=== PATIENT | male | born 1955 | race African-American/Black ===

== ENCOUNTER 2016-03-20 16:34 | Emergency (ER) | payer OTHER ==
[~2016-03-20] VITALS: Ht 162.6 cm; Wt 68.9 kg
[~2016-03-20 16:34] MED LIST: ALBUTEROL SULF8.5 GM INH; AMOXICILLIN500 MG ORAL; ASPIRIN EC81 MG ORAL; AZITHROMYCIN250 MG PO; CORTISPORIN-TC10 M1 OT; DEBROX15 M1 OT; IBUPROFEN600 MG ORAL; IBUPROFEN800 MG ORAL; NKM; OMNIPRED10 ML OP
[2016-03-20] MEDS ORDERED: Azithromycin 250mg tab PO ONE (17:00)
--- NOTE | 2016-03-20 17:31 | Emergency Room Report ---
History of Present Illness General Chief Complaint: Pain Source: Patient Present Illness HPI Patient states that he has had a cold for the past couple weeks. He states that this had been improving. However, for the past couple days he has noticed right-sided chest pain. He states that this is primarily when he coughs or takes in a deep breath. He does have intermittent cough with some sputum production. He denies fevers or chills. He denies nausea or vomiting. He denies shortness of breath. He denies abdominal pain. He has no other complaints. Allergies: Coded Allergies: No Known Allergies (Unverified , 08/20/12) Patient History Past Medical History: none, see triage record Past Surgical History: none Social History: Reports: alcohol use, smoking Reviewed Nursing Documentation: PMH: Agreed, PSxH: Agreed Nursing Documentation-PMH Past Medical History: No Stated History Review of Systems All Other Systems: negative except mentioned in HPI Physical Exam Vital Signs Date Time Temp Pulse Resp B/P Pulse Ox O2 Delivery O2 Flow Rate FiO2 03/20/16 16:39 100.4 93 14 114/67 96 Room Air Sp02 EP Interpretation: reviewed, normal General Appearance: no apparent distress, alert, GCS 15, non-toxic Head: normocephalic, atraumatic Eyes: bilateral eye PERRL, bilateral eye normal inspection ENT: hearing grossly normal, normal pharynx, no angioedema, normal voice Neck: full range of motion, supple/symm/no masses Respiratory: chest non-tender, lungs clear, normal breath sounds, speaking full sentences Cardiovascular #1: regular rate, rhythm, no edema Gastrointestinal: normal bowel sounds, non tender, soft, non-distended, no guarding, no rebound Rectal: deferred Musculoskeletal: back normal, gait/station normal, normal range of motion, non- tender Neurologic: alert, oriented x3, responsive, motor strength/tone normal, sensory intact, speech normal Psychiatric: judgement/insight normal, memory normal, mood/affect normal, no suicidal/homicidal ideation Skin: normal color, no rash, warm/dry, well hydrated Medical Decision Making Diagnostic Impression: Primary Impression: Pneumonia ER Course This patient has a right-sided pneumonia. This explains the patient's symptoms. I have low suspicion for acute coronary syndrome, PE or aortic dissection based on the patient's history and physical an obvious alternative diagnosis. Patient did undergo basic laboratory workup to include CBC, CMP, cardiac enzymes and this showed no significant abnormalities. Patient is well appearing overall. He is nontoxic with normal oxygen saturations and without any evidence of respiratory distress. At this time, the patient doesn't require admission. I will start the patient on a course of oral antibiotics. The patient's given close return precautions and follow up instructions. Labs Test 03/20/16 17:35 03/20/16 18:17 White Blood Count 10.7 K/UL (4.8-10.8) Red Blood Count 4.38 M/UL (4.70-6.10) Hemoglobin 14.3 G/DL (14.2-18.0) Hematocrit 44.4 % (42.0-52.0) Mean Corpuscular Volume 101 FL (80-99) Mean Corpuscular Hemoglobin 32.7 PG (27.0-31.0) Mean Corpuscular Hemoglobin Concent 32.3 G/DL (32.0-36.0) Red Cell Distribution Width 12.5 % (11.6-14.8) Platelet Count 169 K/UL (150-450) Mean Platelet Volume 9.1 FL (6.5-10.1) Neutrophils (%) (Auto) 81.5 % (45.0-75.0) Lymphocytes (%) (Auto) 9.8 % (20.0-45.0) Monocytes (%) (Auto) 7.3 % (1.0-10.0) Eosinophils (%) (Auto) 0.5 % (0.0-3.0) Basophils (%) (Auto) 1.0 % (0.0-2.0) Sodium Level 141 mEQ/L (135-145) Potassium Level 4.1 mEQ/L (3.4-4.9) Chloride Level 100 mEQ/L (98-107) Carbon Dioxide Level 26 mEQ/L (20-30) Anion Gap 15 (5-15) Blood Urea Nitrogen 11 mg/dL (7-23) Creatinine 1.0 mg/dL (0.7-1.2) Estimat Glomerular Filtration Rate > 60 mL/min (>60) Glucose Level 88 mg/dL (74-106) Lactic Acid Level 0.80 mmol/L (0.66-2.22) Calcium Level 9.2 mg/dL (8.6-10.2) Total Bilirubin 0.4 mg/dL (0.0-1.2) Aspartate Amino Transf (AST/SGOT) 15 U/L (5-40) Alanine Aminotransferase (ALT/SGPT) 13 U/L (3-41) Alkaline Phosphatase 71 U/L (40-129) Total Protein 7.7 g/dL (6.6-8.7) Albumin 4.0 g/dL (3.5-5.2) Globulin 3.7 g/dL Albumin/Globulin Ratio 1.0 (1.0-2.7) Urine Color Pale yellow Urine Appearance Clear Urine pH 7 (4.5-8.0) Urine Specific Brick 1.005 (1.005-1.035) Urine Protein Negative (NEGATIVE) Urine Glucose (UA) Negative (NEGATIVE) Urine Ketones Negative (NEGATIVE) Urine Occult Blood 2+ (NEGATIVE) Urine Nitrite Negative (NEGATIVE) Urine Bilirubin Negative (NEGATIVE) Urine Urobilinogen Normal MG/DL (0.0-1.0) Urine Leukocyte Esterase Negative (NEGATIVE) EKG Diagnostic Results Rate: normal Rhythm: NSR ST Segments: no acute changes Rhythm Strip Diag. Results EP Interpretation: yes Rate: 90's Rhythm: NSR, no PVC's, no ectopy Chest X-Ray Diagnostic Results EP Interpretation: Yes Findings: no effusion, no pneumothorax, other Number of Views: 1 Other Impression RLL opacity Last Vital Signs Date Time Temp Pulse Resp B/P Pulse Ox O2 Delivery O2 Flow Rate FiO2 03/20/16 16:39 100.4 93 14 114/67 96 Room Air Status: improved Disposition: HOME, SELF-CARE Condition: Improved Referrals: [facility],REFERRING (PCP) HEMANT CRISOSTOMO D.O. Mar 20, 2016 17:31
[2016-03-20 17:39] VITALS: BP 130/68
[2016-03-20] MEDS ORDERED: Acetaminophen 500mg (ES) tab ORAL ONE (17:45)
[2016-03-20 17:51] LABS: EOSINOPHILS % (AUTO) 0.5 % (0.0-3.0); LYMPHOCYTES % (AUTO) 9.8 % (20.0-45.0); MEAN CORPUSCULAR HEMOGLOBIN 32.7 PG (27.0-31.0); MEAN CORPUSCULAR HGB CONC 32.3 G/DL (32.0-36.0); MEAN CORPUSCULAR VOLUME 101 FL (80-99); MEAN PLATELET VOLUME 9.1 FL (6.5-10.1); MONOCYTES % (AUTO) 7.3 % (1.0-10.0); NEUTROPHILS % (AUTO) 81.5 % (45.0-75.0); PLATELET COUNT 169 K/UL (150-450); RED BLOOD COUNT 4.38 M/UL (4.70-6.10); RED CELL DISTRIBUTION WIDTH 12.5 % (11.6-14.8); WHITE BLOOD COUNT 10.7 K/UL (4.8-10.8)
[2016-03-20 18:11] LABS: ALANINE AMINOTRANSFERASE 13 U/L (3-41); ANION GAP 15 (5-15); ASPARTATE AMINO TRANSFERASE 15 U/L (5-40); CALCIUM 9.2 mg/dL (8.6-10.2); CARBON DIOXIDE 26 mEQ/L (20-30); CHLORIDE 100 mEQ/L (98-107); GLOMERULAR FILTRATION RATE > 60 mL/min (>60); HEMOLYSIS 6; POTASSIUM 4.1 mEQ/L (3.4-4.9); SODIUM 141 mEQ/L (135-145); TOTAL PROTEIN 7.7 g/dL (6.6-8.7)
[2016-03-20 18:41] LABS: APPEARANCE,URINE CLEAR; KETONES,URINE NEGATIVE (NEGATIVE); LEUKOCYTE ESTERASE ,URINE NEGATIVE (NEGATIVE); NITRITE,URINE NEGATIVE (NEGATIVE); PH,URINE 7 (4.5-8.0); PROTEIN,URINE NEGATIVE (NEGATIVE); UROBILINOGEN,URINE NORMAL MG/DL (0.0-1.0)
[2016-03-20] MEDS ORDERED: IBUPROFEN600 MG ORAL (18:53)
[2016-03-20] MEDS ORDERED: AZITHROMYCIN250 MG ORAL (18:53)
[2016-03-20] MEDS ORDERED: ACETAMINOPHEN-1 EAC1 ORAL (18:53)
[2016-03-20 19:02] LABS: WBC,URINE 0-2 /HPF (0 - 0)
[2016-03-20 19:05] VITALS: BP 125/62
[2016-03-20 19:06] VITALS: BP 130/68
--- NOTE | 2016-03-22 21:16 | Cardiology Report ---
APPROVED REPORT EKG Measurement Heart [id number] Normal sinus rhythm Septal infarct, age undetermined Abnormal ECG
--- NOTE | 2016-03-23 11:03 | Diagnostic Imaging Report ---
Indication: Chest pain Technique: XRAY CHEST 1 V Comparison: 04/16/14 Findings: Cardiac silhouette is mildly prominent. Mild perihilar interstitial prominence is noted. There is left basilar atelectasis. Osseous structures are stable. Impression: Mild perihilar interstitial prominence. Mild edema not excluded and clinical correlation/followup recommended. Mild basilar atelectasis.
== END 2016-03-20 19:08 | disposition home or self-care (01) ==
LOC: EMR 17:02
DX: J18.9 Pneumonia, unspecified organism (principal); F17.200 Nicotine dependence, unspecified, uncomplicated
CPT/HCPCS: 36415; 71010; 80053; 81003; 83605; 85025; 86710; 87040; 93005; 99284; Q0144

== ENCOUNTER 2016-06-04 17:42 | Emergency (ER) | payer OTHER ==
[~2016-06-04] VITALS: Ht 165.1 cm; Wt 68.0 kg
[~2016-06-04 17:42] MED LIST changes: +ACETAMINOPHEN-1 EAC1 ORAL; +AZITHROMYCIN250 MG ORAL
[2016-06-04 18:10] VITALS: BP 118/73
[2016-06-04] MEDS ORDERED: IBUPROFEN600 MG ORAL (18:21)
[2016-06-04] MEDS ORDERED: HYDROCORTISONE28 G2 TP (18:21)
[2016-06-04] MEDS ORDERED: ELBOW STRAP1 EACH MC (18:21)
[2016-06-04 18:25] VITALS: BP 118/73
--- NOTE | 2016-06-04 21:46 | Emergency Room Report ---
History of Present Illness General Chief Complaint: Pain Source: Patient Present Illness HPI The patient is a 60-year-old male presenting for elbow pain which began 4 days prior for no known reason. He denies any known injury. It is described as a 5/ 10 dull ache and is worse with elbow movement and touch. The pain does not radiate from the elbow. He has not tried any medications. Patient also noticed a rash on the back which began after staying in a hotel one week prior. he denies any pain but doesn't make to itching. He denies any other symptoms including N, V, F, chills, SOB, CP, numbness/ tingling Allergies: Coded Allergies: No Known Allergies (Unverified , 08/20/12) Patient History Past Medical History: see triage record Pertinent Family History: none Reviewed Nursing Documentation: PMH: Agreed, PSxH: Agreed Nursing Documentation-PMH Past Medical History: No Stated History Review of Systems All Other Systems: negative except mentioned in HPI Physical Exam Vital Signs Date Time Temp Pulse Resp B/P Pulse Ox O2 Delivery O2 Flow Rate FiO2 06/04/16 17:56 98.1 90 20 118/73 98 Sp02 EP Interpretation: reviewed, normal General Appearance: no apparent distress, alert, GCS 15, non-toxic Head: normocephalic, atraumatic Eyes: bilateral eye PERRL, bilateral eye normal inspection ENT: hearing grossly normal, normal pharynx, no angioedema, normal voice Musculoskeletal: normal range of motion, tender - TTP over the L arm lateral epicondyle Neurologic: alert, oriented x3, responsive, motor strength/tone normal, sensory intact, normal gait, speech normal Psychiatric: judgement/insight normal, memory normal, mood/affect normal, no suicidal/homicidal ideation Skin: normal color, warm/dry, well hydrated, other - papules with excoriations markins on the R lower back Lymphatic: no adenopathy Medical Decision Making PA Attestation Dr. Baker is my supervising physician. Patient management was discussed with my supervising physician Diagnostic Impression: Primary Impression: Left tennis elbow Additional Impression: Bed bug bite Qualified Codes: W57.XXXA - Bitten or stung by nonvenomous insect and other nonvenomous arthropods, initial encounter ER Course The patient is a 60-year-old male presenting for elbow pain and rash Ddx considered include but not limited to sprain/strain, fracture, tendonitis, contusion, bed bug bites, cellulitis, contact dermatitis Physical exam: No apparent distress Left elbow: There is tenderness to palpation over the lateral epicondyle. No edema. No erythema. Full active range of motion. No pain over olecranon. There is a scattered papular rash of the right lower back with excoriations. No burrowing. No scaling. No vesicles. The patient is discharged home and will follow up with PMD. He is given prescriptions for Motrin, topical steroids, and a forearm brace. RICE instructions given Last Vital Signs Date Time Temp Pulse Resp B/P Pulse Ox O2 Delivery O2 Flow Rate FiO2 06/04/16 18:25 98.1 20 118/73 98 06/04/16 17:56 90 Status: improved Disposition: HOME, SELF-CARE Condition: Improved Scripts Arm Brace (ELBOW STRAP) 1 Each Each 1 EACH , #1 Prov: CINTHIA FLOOD 06/04/16 Hydrocortisone Acetate 1% Onit (HYDROCORTISONE 1% OINT) Y Oint 1 GM TP TID, #28 GM Prov: CINTHIA FLOOD 06/04/16 Ibuprofen* (MOTRIN*) 600 Mg Tablet 600 MG ORAL Q8H Y for For Pain, #30 TAB 0 Refills Prov: CINTHIA FLOOD. 06/04/16 Patient Instructions: Tendinitis, Insect Bite Additional Instructions: I discussed my findings with the patient. All questions and concerns have been answered. Treatment and medication compliance have been addressed. I advised the patient that they need to follow up with PMD in 3-5 days. Return to ED if symptoms worsen, new symptoms arise, or if needed for any reason. Patient verbalized understanding of discharge instructions. CINTHIA FLOOD Jun 04, 2016 21:46
== END 2016-06-04 18:25 | disposition home or self-care (01) ==
LOC: EMR 18:03
DX: M77.12 Lateral epicondylitis, left elbow (principal); S30.860A Insect bite (nonvenomous) of lower back and pelvis, initial encounter; W57.XXXA Bitten or stung by nonvenomous insect and other nonvenomous arthropods, initial encounter; Y92.89 Other specified places as the place of occurrence of the external cause; R21 Rash and other nonspecific skin eruption
CPT/HCPCS: 99284

== ENCOUNTER 2016-09-17 18:49 | Emergency (ER) | payer OTHER ==
[~2016-09-17] VITALS: Ht 165.1 cm; Wt 68.0 kg
[~2016-09-17 18:49] MED LIST changes: +ELBOW STRAP1 EACH MC; +HYDROCORTISONE28 G2 TP
[2016-09-17] MEDS ORDERED: ERYTHROMYCIN3.5 GM LEFT EYE (19:11)
[2016-09-17 19:15] VITALS: BP 119/77
[2016-09-17 19:30] VITALS: BP 119/77
--- NOTE | 2016-09-17 20:56 | Emergency Room Report ---
History of Present Illness General Chief Complaint: Eye Problems Source: Patient Present Illness [facility] The patient is a [id number] male presenting with left upper eyelid swelling. He states that he noticed redness and swelling to the eyelid 2 days prior. He denies any pain to the area. 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 He denies fever or chills. He denies any discharge from the eye. Allergies: Coded Allergies: No Known Allergies (Unverified , 08/20/12) Patient History Past Medical History: see triage record Pertinent Family History: none Reviewed Nursing Documentation: PMH: Agreed, PSxH: Agreed Nursing Documentation-PMH Past Medical History: No Stated History Review of Systems All Other Systems: negative except mentioned in HPI Physical Exam Vital Signs Date Time Temp Pulse Resp B/P Pulse Ox O2 Delivery O2 Flow Rate FiO2 09/17/16 18:58 98.1 69 16 128/77 98 Room Air Sp02 EP Interpretation: reviewed, normal General Appearance: no apparent distress, alert, GCS 15, non-toxic Head: normocephalic, atraumatic Eyes: left eye PERRL - non-reactive. Blind, left eye lid inflammation - upper eyelid, bilateral eye EOMI ENT: hearing grossly normal, normal pharynx, no angioedema, normal voice Neurologic: alert, oriented x3, responsive, motor strength/tone normal, sensory intact, speech normal Psychiatric: judgement/insight normal, memory normal, mood/affect normal, no suicidal/homicidal ideation Skin: normal color, no rash, warm/dry, well hydrated Lymphatic: no adenopathy Medical Decision Making PA Attestation Dr. Baker is my supervising physician. Patient management was discussed with my supervising physician Diagnostic Impression: Primary Impression: Blepharitis of eyelid of left eye Qualified Codes: H01.004 - Unspecified blepharitis left upper eyelid ER Course The patient is a [id number] male presenting with left upper eyelid swelling Differential diagnoses considered but not limited to allergic conjunctivitis, bacterial conjunctivitis, viral conjunctivitis, blepharitis, hordeolum Physical exam: Left upper eyelid has erythema and edema to the mid eyelid. Non tender. No DC. He will be DC'ed home with prescription for erythromycin and is given instructions for warm compress. ER precautions given. He will followup with ophthalmology as discussed Last Vital Signs Date Time Temp Pulse Resp B/P Pulse Ox O2 Delivery O2 Flow Rate FiO2 09/17/16 19:30 98.1 71 15 119/77 99 Room Air Status: improved Disposition: HOME, SELF-CARE Condition: Improved Scripts Erythromycin Base (ERYTHROMYCIN*) 3.5 Gm Oint...g. 1 APPLIC LEFT EYE BID for 14 Days, #3.5 GM 0 Refills Prov: CINTHIA FLOOD 09/17/16 Patient Instructions: Blepharitis Additional Instructions: I discussed my findings with the patient. All questions and concerns have been answered. Treatment and medication compliance have been addressed. I advised the patient that they need to follow up with PMD in 3-5 days. Return to ED if symptoms worsen, new symptoms arise, or if needed for any reason. Patient verbalized understanding of discharge instructions. CINTHIA FLOOD Sep 17, 2016 20:56
== END 2016-09-17 19:30 | disposition home or self-care (01) ==
LOC: EMR 19:30
DX: H01.004 Unspecified blepharitis left upper eyelid (principal)
CPT/HCPCS: 99283

== ENCOUNTER 2017-05-18 18:13 | Emergency (ER) | payer OTHER ==
[~2017-05-18] VITALS: Ht 160 cm; Wt 70.3 kg
[~2017-05-18 18:13] MED LIST changes: +ERYTHROMYCIN3.5 GM LEFT EYE
[2017-05-18 18:42] VITALS: BP 116/70
--- NOTE | 2017-05-18 18:47 | Emergency Room Report ---
History of Present Illness General Chief Complaint: Upper Respiratory Illness Source: Patient Present Illness HPI 61 yo male patient presents to ER complaining of cough x1 day. Reports cough with sputum during this time. Denies hemoptysis. Reports at home recently diagnosed with bronchitis, experiencing similar symptoms. Patient complains of losing voice during this time. Patient also complains of wrist and hand pain and left foot pain. 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 Denies recent wrist, hand, foot or ankle injury. Denies difficulty with ambulation. Denies chest pain, SOB, weight loss, abdominal pain, nausea, vomiting, diarrhea. Reports hx of smoking for 20+ years, reports smoking one pack a day. Denies hx of cardiovascular disease. Denies hx of gout. Allergies: Coded Allergies: No Known Allergies (Unverified , 08/20/12) Patient History Past Medical History: see triage record Reviewed Nursing Documentation: PMH: Agreed; PSxH: Agreed Nursing Documentation-PMH Past Medical History: No Stated History Review of Systems All Other Systems: negative except mentioned in HPI Physical Exam Vital Signs Date Time Temp Pulse Resp B/P (MAP) Pulse Ox O2 Delivery O2 Flow Rate FiO2 05/18/17 18:24 98.3 89 18 114/65 95 Room Air 98.2 Sp02 EP Interpretation: reviewed, normal General Appearance: well appearing, no apparent distress, alert, GCS 15, non- toxic Head: normocephalic, atraumatic Eyes: bilateral eye normal inspection, bilateral eye PERRL ENT: hearing grossly normal, normal pharynx, no angioedema, normal voice, TMs + canals normal, uvula midline, moist mucus membranes Neck: full range of motion Respiratory: lungs clear, normal breath sounds, no rhonchi, no respiratory distress, no accessory muscle use, no wheezing, speaking full sentences Cardiovascular #1: regular rate, rhythm, no edema Cardiovascular #2: 2+ radial (R), 2+ radial (L) Genitourinary: no CVA tenderness Musculoskeletal: back normal, digits/nails normal, gait/station normal, normal range of motion, non-tender, no calf tenderness, swelling - mild edema on dorsum of right foot, other - NVI, no snuffbox tendernes bilaterally Neurologic: alert, oriented x3, responsive, motor strength/tone normal, sensory intact Psychiatric: mood/affect normal Skin: no rash Lymphatic: no adenopathy Medical Decision Making PA Attestation Dr. Ibanez is my supervising Physician whom patient management has been discussed with. Diagnostic Impression: Primary Impression: Upper respiratory infection Additional Impressions: Foot pain Bilateral wrist pain ER Course Pt presents to ED c/o cough and wrist/forearm/left foot pain. DDX considered but are not limited to influenza, viral URI, pneumonia, strep throat, rhinitis, sinusitis, otitis media, laryngitis. DDX considered but are not limited to sprain, strain, overuse, carpal tunnel, tendonitis. Ordered CXR to rule out underlying disorder due to history of smoking. Patient denies chest pain, hemoptysis, does not require workup for underlying cardiac disorder. Low suspicion for PE per Well's criteria. Denies recent injury or trauma, full ROM, no deformity noted, low suspicion for fracture, does not require imaging at this time. VITAL SIGNS are WNL, patient is afebrile ER COURSE: CXR negative for acute disease per the preliminary reading. Advised patient on RICE: rest, ice, compression, elevation. Informed patient pain likely to overuse, needs rest and Tylenol. Avoid overuse of voice and singing for laryngitis like symptoms. Informed patient cough symptoms likely viral in nature, does not require abx at this time, xray clear, lungs clear to auscultation. Don't smoke. Stop smoking, worsen cough symptoms. Patient reports does not want to quit at this time. Return to ER for new or worsening of symptoms. Patient declined need for crutches, reports able to ambulate without difficulty. DISCHARGE: -Rx given for Ibuprofen -Rx given for Promethazine syrup for cough sx. At this time pt is stable for d/c to home. Patient is resting comfortably, in no acute distress, nontoxic appearing, smiling, talking without difficulty. Patient to take medications as instructed Will provide with patient care instructions and any necessary prescriptions. Care plan and follow-up instructions provided. Patient instructed to follow-up with primary care provider in 3 - 5 days. Patient questions asked and answered. Patient reports understanding and agreement to treatment plan. ER precautions given. Patient instructed to return to ER immediately for any new or worsening of symptoms including but not limited to increasing SOB, persistent fever. Chest X-Ray Diagnostic Results Chest X-Ray Diagnostic Results : Chest X-Ray Ordered: Yes # of Views/Limited/Complete: 1 View Indication: Other - cough EP Interpretation: Yes PA Xray: Interpretation reviewed, by supervising MD, and agrees with findings. Interpretation: no consolidation, no effusion, no pneumothorax, no acute cardiopulmonary disease Impression: No acute disease JOJO Jimenez Text Osmar Laureano PA-C Last Vital Signs Date Time Temp Pulse Resp B/P (MAP) Pulse Ox O2 Delivery O2 Flow Rate FiO2 05/18/17 18:42 89 18 Room Air 05/18/17 18:42 98.2 116/70 95 98.2 Disposition: HOME, SELF-CARE Condition: Stable Scripts Ibuprofen* (MOTRIN*) 600 Mg Tablet 600 MG ORAL Q8H PRN for For Pain, #30 TAB 0 Refills Prov: Bharat Laureano 05/18/17 Promethazine Hcl (PROMETHAZINE HCL*) 6.25 Mg/5 Ml Syrup 5 ML ORAL Q8H, #120 ML 0 Refills Prov: Bharat Laureano 05/18/17 Referrals: [facility],REFERRING (PCP) Patient Instructions: Foot Contusion, [id number], Upper Respiratory Infection , Adult, Wrist Pain, [id number] Additional Instructions: Patient instructed to follow up with primary care provider and discuss further referral to orthopedics. Discuss referral to pain. Patient instructed on RICE method: rest, ice, compression, elevation. Patient instructed to WBAT. Take medications as directed. Patient questions asked and answered. ER precautions given, patient instructed to return to ER immediately for any new or worsening of symptoms. Bharat Laureano May 18, 2017 18:47
[2017-05-18] MEDS ORDERED: PROMETHAZI6.25 MG/1 ORAL (19:13)
[2017-05-18] MEDS ORDERED: IBUPROFEN600 MG ORAL (19:13)
[2017-05-18 19:20] VITALS: BP 116/70
--- NOTE | 2017-05-19 10:59 | Diagnostic Imaging Report ---
Indication: Cough Comparison: 03/20/2016 A single view chest radiograph was obtained. Findings: Cardiomediastinal appearance is within normal limits for age. Pulmonary vascularity is appropriate. The diaphragmatic contour is smooth and costophrenic angles are sharp. No pleural effusions are identified. The bones are unremarkable. Impression: No acute findings
== END 2017-05-18 19:20 | disposition home or self-care (01) ==
LOC: EMR 18:39
DX: J06.9 Acute upper respiratory infection, unspecified (principal); M25.532 Pain in left wrist; M25.531 Pain in right wrist; M25.572 Pain in left ankle and joints of left foot; F17.210 Nicotine dependence, cigarettes, uncomplicated
CPT/HCPCS: 71045; 99284

== ENCOUNTER 2017-12-20 16:13 | Emergency (ER) | payer OTHER ==
[~2017-12-20] VITALS: Ht 162.6 cm; Wt 68.0 kg
[~2017-12-20 16:13] MED LIST changes: +PROMETHAZI6.25 MG/1 ORAL
[2017-12-20] MEDS ORDERED: Lidocaine 1% 10mg/ml/Epi 0.005mg/ml 30ml vial INJ ONE (16:30)
[2017-12-20 16:31] VITALS: BP 121/75
[2017-12-20 17:38] LABS: ANION GAP 11 mmol/L (5-15); BASOPHILS % (AUTO) 2.9 % (0.0-2.0); BLOOD UREA NITROGEN 17 mg/dL (7-18); CALCIUM 9.6 MG/DL (8.5-10.1); CARBON DIOXIDE 27 MMOL/L (21-32); CHLORIDE 101 MMOL/L (98-107); CREATININE 1.1 MG/DL (0.55-1.30); EOSINOPHILS % (AUTO) 2.1 % (0.0-3.0); HEMATOCRIT 46.6 % (42.0-52.0); HEMOGLOBIN 15.6 G/DL (14.2-18.0); LYMPHOCYTES % (AUTO) 14.9 % (20.0-45.0); MEAN CORPUSCULAR VOLUME 97 FL (80-99); MONOCYTES % (AUTO) 9.7 % (1.0-10.0); NEUTROPHILS % (AUTO) 70.4 % (45.0-75.0); PLATELET COUNT 178 K/UL (150-450); POTASSIUM 3.9 MMOL/L (3.5-5.1); RED BLOOD COUNT 4.79 M/UL (4.70-6.10); RED CELL DISTRIBUTION WIDTH 11.7 % (11.6-14.8); SODIUM 139 MMOL/L (136-145); WHITE BLOOD COUNT 6.1 K/UL (4.8-10.8)
[2017-12-20 17:43] LABS: ALANINE AMINOTRANSFERASE 48 U/L (12-78); ALBUMIN 4.1 G/DL (3.4-5.0); ALBUMIN/GLOBULIN RATIO 0.7 (1.0-2.7); ALKALINE PHOSPHATASE 78 U/L (46-116); ASPARTATE AMINO TRANSFERASE 34 U/L (15-37); BILIRUBIN,TOTAL 0.5 MG/DL (0.2-1.0)
[2017-12-20] MEDS ORDERED: Silver Nitrate Stick TOPIC ONE (17:45)
[2017-12-20 18:39] VITALS: BP 118/76
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
[2017-12-20] MEDS ORDERED: CHLOR-TRIMETON4 MG PO (19:14)
[2017-12-20] MEDS ORDERED: BACITRACIN15 GM TOPIC (19:14)
[2017-12-20 20:00] VITALS: BP 115/75
== END 2017-12-20 19:25 | disposition home or self-care (01) ==
LOC: EMR 16:50
DX: R04.0 Epistaxis (principal)
CPT/HCPCS: 36415; 80053; 85025; 85610; 85730; 99283

== ENCOUNTER 2018-01-04 14:57 | Emergency (ER) | payer OTHER ==
[~2018-01-04] VITALS: Ht 162.6 cm; Wt 68.0 kg
[~2018-01-04 14:57] MED LIST changes: +BACITRACIN15 GM TOPIC; +CHLOR-TRIMETON4 MG PO
[2018-01-04 15:20] VITALS: BP 120/78
[2018-01-04] MEDS ORDERED: Hydrogen Peroxide 473ml Bottle TOPIC ONE (15:30)
--- NOTE | 2018-01-04 15:32 | Emergency Room Report ---
History of Present Illness General Chief Complaint: Earache Source: Patient Present Illness HPI 62-year-old male patient presents ER complaining of excessive cerumen in bilateral ears. Reports decreased hearing to symptoms. Denies use Q-tips. Denies ear drainage. Denies fever, chest pain, shortness of breath. 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 Allergies: Coded Allergies: No Known Allergies (Unverified , 12/20/17) Patient History Past Medical History: see triage record Reviewed Nursing Documentation: PMH: Agreed; PSxH: Agreed Nursing Documentation-PMH Past Medical History: No History, Except For Review of Systems All Other Systems: negative except mentioned in HPI Physical Exam Vital Signs Date Time Temp Pulse Resp B/P (MAP) Pulse Ox O2 Delivery O2 Flow Rate FiO2 01/04/18 15:10 98.2 98 17 120/78 97 Room Air Sp02 EP Interpretation: reviewed, normal General Appearance: well appearing, no apparent distress, alert, GCS 15, non- toxic Head: normocephalic, atraumatic Eyes: bilateral eye normal inspection, bilateral eye PERRL ENT: hearing grossly normal, normal pharynx, no angioedema, normal voice, uvula midline, moist mucus membranes, other - cerumen impaction bilaterally, no pain with ear pulling Neck: full range of motion Respiratory: lungs clear, normal breath sounds, no rhonchi, no respiratory distress, no accessory muscle use, no wheezing, speaking full sentences Cardiovascular #1: regular rate, rhythm, no edema Musculoskeletal: back normal, digits/nails normal, gait/station normal, normal range of motion, non-tender Neurologic: alert, oriented x3, responsive, motor strength/tone normal, sensory intact Psychiatric: mood/affect normal Skin: no rash Medical Decision Making PA Attestation Dr. Rey is my supervising Physician whom patient management has been discussed with. Diagnostic Impression: Primary Impression: Cerumen impaction ER Course Pt presents to ED c/o ear pain. DDX considered but are not limited to rhinitis, sinusitis, otitis media, otitis externa, cerumen impaction. VITAL SIGNS are WNL, patient is afebrile. Ordered hydrogen peroxide. ED INTERVENTIONS: PE shows impacted cerumen in ear bilaterally. No mastoid swelling or erythema, no rash or vesicles on face. Patient ear cleaned and flushed with saline and hydrogen peroxide. small amount of bleeding following procedure to lavage ears. Will provide patient with antibiotic eardrops to prevent infection. following lavage, able to visualize TMs, nonerythematous, no TM perforation. Patient instructed not to use Q-tips. Follow-up with primary care provider for further treatment and referral. Discuss referral to ENT. DISCHARGE: Rx provided for Debrox Rx provided for erythromycin At this time pt is stable for d/c to home. patient resting comfortably, no acute distress, nontoxic appearing, talking without difficulty, smiling. Patient to take medications as instructed Will provide with patient care instructions and any necessary prescriptions. Care plan and follow-up instructions provided. Patient instructed to follow-up with primary care in 3 - 5 days. Patient questions asked and answered. patient reports understanding and agreement treatment plan. ER precautions given. Patient instructed to return to ER immediately for any new or worsening of symptoms including but not limited to increasing SOB, persistent fever. - Please note that this Emergency Department Report was dictated using [employer] room technician technology software, occasionally this can lead to erroneous entry secondary to interpretation by the dictation equipment. Last Vital Signs Date Time Temp Pulse Resp B/P (MAP) Pulse Ox O2 Delivery O2 Flow Rate FiO2 01/04/18 15:10 98.2 98 17 120/78 97 Room Air Disposition: HOME, SELF-CARE Condition: Stable Scripts Neomycin/Polymyxin B Sulf/Hc (FOHOTZUC-LABCOYHIK-UB EAR SUSP) 10 Ml Drops.susp 10 ML OT BID, #10 ML Prov: Bharat Laureano 01/04/18 Carbamide Peroxide (DEBROX) 15 Ml Drops 5 DROP BOTH EARS TWICE A DAY for 4 Days, ML 0 Refills Prov: Bharat Laureano 01/04/18 Patient Instructions: Cerumen Impaction Additional Instructions: Followup with primary care provider in 3 -5 days. Discuss referral to ENT specialist. Take medications as directed. Patient questions asked and answered. ER precautions given, patient instructed to return to ER immediately for any new or worsening of symptoms. Bharat Laureano Jan 04, 2018 15:32
[2018-01-04] MEDS ORDERED: DEBROX15 M1 BOTH EARS (16:47)
[2018-01-04] MEDS ORDERED: NEOMYCIN-POLYMY10 M1 OT (16:47)
[2018-01-04 16:59] VITALS: BP 130/78
[2018-01-05] MEDS ORDERED: TYLENOL EXTRA500 MG ORAL (15:55)
== END 2018-01-04 17:00 | disposition home or self-care (01) ==
LOC: EMR 15:43
DX: H61.23 Impacted cerumen, bilateral (principal)
CPT/HCPCS: 69209; 99284; Z7502

== ENCOUNTER 2018-01-05 15:49 | Emergency (ER) | payer OTHER ==
[~2018-01-05] VITALS: Ht 162.6 cm; Wt 68.0 kg
[~2018-01-05 15:49] MED LIST changes: +DEBROX15 M1 BOTH EARS; +NEOMYCIN-POLYMY10 M1 OT
[2018-01-05] MEDS ORDERED: TYLENOL EXTRA500 MG ORAL (15:55)
--- NOTE | 2018-01-05 16:08 | Emergency Room Report ---
History of Present Illness General Chief Complaint: Earache Source: Patient Present Illness HPI 62year-old male patient presents ER complaining of ear pain the past few days. Patient was seen here yesterday by me for similar symptoms. He was discharged home with bilateral cerumen impaction following lavage. heart symptoms right ear have improved however still has decreased hearing in his left ear. Reports filled the antibiotic prescription did not fill the Debrox medication because the pharmacy "didn't have it", states will fill prescription today. denies ear drainage. Denies fever, chest pain, shortness of breath. Denies sore throat. Allergies: Coded Allergies: No Known Allergies (Unverified , 12/20/17) Patient History Past Medical History: see triage record Reviewed Nursing Documentation: PMH: Agreed; PSxH: Agreed Review of Systems All Other Systems: negative except mentioned in HPI Physical Exam Vital Signs Date Time Temp Pulse Resp B/P (MAP) Pulse Ox O2 Delivery O2 Flow Rate FiO2 01/05/18 15:51 98.1 83 20 127/81 97 Room Air Sp02 EP Interpretation: reviewed, normal General Appearance: well appearing, no apparent distress, alert, GCS 15, non- toxic Head: normocephalic, atraumatic Eyes: bilateral eye normal inspection, bilateral eye PERRL ENT: hearing grossly normal, normal pharynx, no angioedema, normal voice, TMs + canals normal - right ear, uvula midline, moist mucus membranes, other - left ear: Excessive cerumen noted in ear canal, no surrounding erythema or edema, no bleeding, no drainage, able to visualize portion of TM, nonerytehmatous, no effusion Neck: full range of motion, no bony tend Respiratory: lungs clear, normal breath sounds, no rhonchi, no respiratory distress, no accessory muscle use, no wheezing, speaking full sentences Cardiovascular #1: regular rate, rhythm, no edema Musculoskeletal: back normal, digits/nails normal, gait/station normal, normal range of motion, non-tender Psychiatric: mood/affect normal Skin: no rash Medical Decision Making PA Attestation Dr. Ceballos is my supervising Physician whom patient management has been discussed with. Diagnostic Impression: Primary Impression: Excessive cerumen in left ear canal ER Course Pt presents to ED c/o ear pain. DDX considered but are not limited to rhinitis, sinusitis, otitis media, otitis externa, cerumen impaction. VITAL SIGNS are WNL, patient is afebrile. Ordered hydrogen peroxide. ED INTERVENTIONS: PE shows impacted cerumen in left ear, able to visualize TM behind however still large amount of cerumen No mastoid swelling or erythema, no rash or vesicles on face. Patient ear cleaned and flushed with saline. large amount of wax removed from ear. Able to visualize TM, nonerythematous no effusion. Mild erythema of the ear canal, likely due to removal of cerumen, advised patient to continue with medications as previously instructed. reports hearing symptoms improved. advised on use of Colace for cerumen removal. Patient instructed not to use Q-tips. Follow-up with primary care provider for further treatment and referral. Discuss referral to ENT. Does not need refills of prescriptions. DISCHARGE: At this time pt is stable for d/c to home. patient resting comfortably, no acute distress, nontoxic appearing, talking without difficulty, smiling. Patient to take medications as instructed Will provide with patient care instructions and any necessary prescriptions. Care plan and follow-up instructions provided. Patient instructed to follow-up with primary care in 3 - 5 days. Patient questions asked and answered. patient reports understanding and agreement treatment plan. ER precautions given. Patient instructed to return to ER immediately for any new or worsening of symptoms including but not limited to increasing SOB, persistent fever. - Please note that this Emergency Department Report was dictated using [employer]feed management advisor technology software, occasionally this can lead to erroneous entry secondary to interpretation by the dictation equipment. Last Vital Signs Date Time Temp Pulse Resp B/P (MAP) Pulse Ox O2 Delivery O2 Flow Rate FiO2 01/05/18 15:51 98.1 83 20 127/81 97 Room Air Disposition: HOME, SELF-CARE Condition: Stable Patient Instructions: Cerumen Impaction Additional Instructions: Followup with primary care provider in 3 -5 days. Followup with ENT. Advised on use of colace pills, poke hole in pill and drip into ear, allow to stay for several minute with head on side before washing out. Take medications as directed. Patient questions asked and answered. ER precautions given, patient instructed to return to ER immediately for any new or worsening of symptoms. Bharat Laureano Jan 05, 2018 16:08
[2018-01-05 16:52] VITALS: BP 131/79
[2018-01-05 16:53] VITALS: BP 127/81
== END 2018-01-05 16:53 | disposition home or self-care (01) ==
LOC: EMR 16:36
DX: H61.22 Impacted cerumen, left ear (principal); Z87.891 Personal history of nicotine dependence
CPT/HCPCS: 99282

== ENCOUNTER 2018-03-03 15:59 | Emergency (ER) | payer OTHER ==
[~2018-03-03] VITALS: Ht 165.1 cm; Wt 70.3 kg
[~2018-03-03 15:59] MED LIST changes: +TYLENOL EXTRA500 MG ORAL
--- NOTE | 2018-03-03 16:05 | NUR ---
ED Nurse Note: patient walked into ED brought in by his brother from home c/o back pain x 2days, denies injury, it does not radiate to anywhere else. a/o x4, ambulatory.
[2018-03-03] MEDS ORDERED: Methocarbamol 500mg tab ORAL ONE (16:30)
[2018-03-03] MEDS ORDERED: Ketorolac 30mg Inj IM ONE (16:30)
[2018-03-03 16:32] VITALS: BP 100/62
[2018-03-03] MEDS ORDERED: TYLENOL EXTRA500 MG ORAL (16:35)
[2018-03-03] MEDS ORDERED: LIDOCAINE700 M1 TP (16:35)
[2018-03-03] MEDS ORDERED: ROBAXIN500 MG PO (16:35)
--- NOTE | 2018-03-03 16:35 | Emergency Room Report ---
History of Present Illness General Chief Complaint: Back Pain-No Injury Source: Patient, Medical Record Present Illness HPI 62-year-old male patient presents the ER complaining of lower back pain for the past 2 days. 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 States he does not, performed a long time". Denies abdominal pain. Denies bowel or bladder incontinence. Denies pain rating down legs. Denies fever, chest pain, shortness of breath. Denies acute injury or trauma. Denies other aggravating or relieving factors. Reports took [id number] NSAIDs for relief of pain symptoms. Denies history of diabetes. Denies history of kidney problems. Denies dysuria, hematuria. Denies diarrhea. Reports history of kidney stones when he was younger however states this does not feel similar to that pain. Denies history of drug use or back surgery. Denies history of kidney disease. Allergies: Coded Allergies: No Known Allergies (Unverified , 12/20/17) Patient History Past Medical History: see triage record Reviewed Nursing Documentation: PMH: Agreed; PSxH: Agreed Nursing Documentation-PMH Past Medical History: No History, Except For Review of Systems All Other Systems: negative except mentioned in HPI Physical Exam Vital Signs Date Time Temp Pulse Resp B/P (MAP) Pulse Ox O2 Delivery O2 Flow Rate FiO2 03/03/18 16:02 98.2 95 18 100/62 95 Room Air Sp02 EP Interpretation: reviewed, normal General Appearance: well appearing, no apparent distress, alert, GCS 15, non- toxic Head: normocephalic, atraumatic Eyes: bilateral eye normal inspection, bilateral eye PERRL ENT: hearing grossly normal, normal pharynx, no angioedema, normal voice, uvula midline, moist mucus membranes Neck: full range of motion Respiratory: lungs clear, normal breath sounds, no rhonchi, no respiratory distress, no accessory muscle use, no wheezing, speaking full sentences Cardiovascular #1: regular rate, rhythm, no edema Gastrointestinal: non tender, soft, no mass, non-distended, no guarding, no pulsatile mass, no rebound Musculoskeletal: back normal, digits/nails normal, gait/station normal, normal range of motion, non-tender Neurologic: alert, oriented x3, responsive, motor strength/tone normal, sensory intact Psychiatric: mood/affect normal Skin: no rash Medical Decision Making PA Attestation Dr. Khan is my supervising Physician whom patient management has been discussed with. Diagnostic Impression: Primary Impression: Lumbago ER Course Pt presents to ED c/o back pain x2 days. DDX considered but are not limited to sprain, strain, cauda equina, epidural abscess, AAA, herniated disc. Low suspicion for cauda equina, no bowel or bladder incontinence or retention. No fever, nontoxic appearing, no radiation of pain, low suspicion for epidural mass. No abdominal pain, no blood pressure elevation, nontoxic appearing, low suspicion for AAA. VITAL SIGNS are WNL, patient is afebrile ER COURSE: Pain medication provided. Lidocaine patch and muscle relaxant provided to patient. Patient does not require imaging at this time, no spinous process tenderness, no bony depression, no recent injury or trauma, low suspicion for fracture. 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 Advised on ice and heat. Advised on rest. Followup with pain management and/or PT. Request referral from PCP. Followup wtih PCP for further MRI and/or CT imaging as needed. DISCHARGE: -Rx provided for Tylenol -Rx provided for Lidocaine patch -Rx provided for Robaxin. SE may cause drowsiness, do not take prior to drinking , driving, or operating [employer] machinery. At this time pt. is stable for d/c to home. At this time patient is resting comfortably, in no acute distress, nontoxic appearing, smiling and talking without difficulty. Will provide printed patient care instructions, and any necessary prescriptions. Patient instructed to follow with primary care provider for further treatment and referral as needed. Care plan and follow up instructions have been discussed with the patient prior to discharge. Patient reports understanding and agreement to treatment plan. Patient questions asked and answered. ER precautions given, patient instructed to return to ER immediately for any new or worsening of symptoms. - Please note that this Emergency Department Report was dictated using [employer] boring machine operator for metal technology software, occasionally this can lead to erroneous entry secondary to interpretation by the dictation equipment. Last Vital Signs Date Time Temp Pulse Resp B/P (MAP) Pulse Ox O2 Delivery O2 Flow Rate FiO2 03/03/18 16:02 98.2 95 18 100/62 95 Room Air Status: improved Disposition: HOME, SELF-CARE Condition: Stable Scripts Acetaminophen* (TYLENOL EXTRA STRENGTH*) 500 Mg Tablet 500 MG ORAL Q8H PRN for Prn Headache/Temp > 101, #30 TAB 0 Refills Prov: Bahrat Laureano 03/03/18 Methocarbamol* (ROBAXIN*) 500 Mg Tablet 500 MG PO TID, #21 TAB 0 Refills Prov: Bharat Laureano 03/03/18 Lidocaine (Lidocaine) 1 Each Adh..patch 5 % TP DAILY for 7 Days, #7 PATCH Prov: Bharat Laureano 03/03/18 Referrals: NON PHYSICIAN (PCP) Patient Instructions: Back Pain, Adult Additional Instructions: Patient instructed to follow up with primary care provider 3-5 and discuss further referral and imaging at that time. Patient instructed on rest, ice and heat. Do not take muscle relaxant prior to drinking, driving, or operating heavy machinery. Take medications as directed. Patient questions asked and answered. ER precautions given, patient instructed to return to ER immediately for any new or worsening of symptoms. [facility] [address] [facility], [address] [email or web address] Bharat Laureano Mar 03, 2018 16:35
--- NOTE | 2018-03-03 16:41 | NUR ---
ED Nurse Note: PT is medically cleared per ERMD order. pt is stable for transfer. pt status condition and vital signs are reported to ERMD prior to DC. pt vital signs are stable. pt is alert and oriented times 4. pt left with all belongings, including DC notes and prescriptions. pt was able to teach back and understands DC notes and prescription. pt is instructed to follow up with primary MD as soon as possible, pt is instructed to return to ER if any variance in condition. ID band removed
--- NOTE | 2018-03-03 16:43 | NUR ---
ED Nurse Note: patient stated that his brother will take him back home
[2018-03-03 17:38] VITALS: BP 100/62
== END 2018-03-03 16:45 | disposition home or self-care (01) ==
LOC: EMR 16:30
DX: M54.5 Low back pain (principal)
CPT/HCPCS: 96372; 99283; J1885

== ENCOUNTER 2018-06-27 12:45 | Emergency (ER) | payer OTHER ==
[~2018-06-27] VITALS: Ht 167.6 cm; Wt 71.7 kg
[~2018-06-27 12:45] MED LIST changes: +LIDOCAINE700 M1 TP; +ROBAXIN500 MG PO
[2018-06-27 13:24] VITALS: BP 130/80
--- NOTE | 2018-06-27 13:27 | NUR ---
ED Nurse Note: Patient walked in to ER c/o Rt eye pain. pt aao x4 and ambulatory. pt is Lt eye blind. skin clean and intact. calm and cooperative. visual acuity Rt 20/70. reported to ERPA. no discharge noted form Rt eye.
[2018-06-27] MEDS ORDERED: ERYTHROMYCIN3.5 GM LEFT EYE (13:50)
--- NOTE | 2018-06-27 13:50 | Emergency Room Report ---
History of Present Illness General Chief Complaint: Eye Problems Source: Patient Present Illness HPI 62-year-old male presents emergency department complaining of 4 out of 10 in severity pain in the left eye with swelling of the eyelids, discharge and increased lacrimation and redness since this a.m. Patient reports history of intermittent conjunctivitis/blepharitis. 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 Patient states that his symptoms feel similar to previously experienced symptoms in the past when he has had an infection. He denies headache, nausea, vomiting, paresthesias of the face or difficulty with speech. He denies foreign body sensation or itching. Aggravating or relieving factors at this time. Allergies: Coded Allergies: No Known Allergies (Unverified , 12/20/17) Patient History Past Medical History: see triage record Past Surgical History: none Pertinent Family History: none Immunizations: UTD Reviewed Nursing Documentation: PSxH: Agreed Nursing Documentation-PMH Past Medical History: No Stated History Review of Systems All Other Systems: negative except mentioned in HPI Physical Exam Vital Signs Date Time Temp Pulse Resp B/P (MAP) Pulse Ox O2 Delivery O2 Flow Rate FiO2 06/27/18 13:06 98.1 78 16 97 Room Air 06/27/18 13:24 130/80 Sp02 EP Interpretation: reviewed, normal General Appearance: no apparent distress, alert, GCS 15, non-toxic Head: normocephalic, atraumatic Eyes: left eye other - cataract visible, mild exopthalmus, increased lacrimation, erythema, and notable d/c. ; bilateral eye normal inspection, bilateral eye PERRL, bilateral eye EOMI ENT: hearing grossly normal, normal voice Neck: full range of motion Respiratory: lungs clear, normal breath sounds, speaking full sentences Cardiovascular #1: regular rate, rhythm Musculoskeletal: back normal, gait/station normal, normal range of motion, non- tender Neurologic: alert, oriented x3, responsive, motor strength/tone normal, sensory intact, speech normal, grossly normal Psychiatric: judgement/insight normal Skin: normal color, no rash, warm/dry, well hydrated Medical Decision Making PA Attestation Dr. Minor is my supervising Physician whom patient management has been discussed with. Diagnostic Impression: Primary Impression: Blepharitis of left eye Qualified Codes: H01.004 - Unspecified blepharitis left upper eyelid Additional Impression: Acute bacterial conjunctivitis of left eye ER Course 62-year-old male presents emergency department complaining of 4 out of 10 in severity pain in the left eye with swelling of the eyelids, discharge and increased lacrimation and redness since this a.m. Patient reports history of intermittent conjunctivitis/blepharitis. 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 Patient states that his symptoms feel similar to previously experienced symptoms in the past when he has had an infection. He denies headache, nausea, vomiting, paresthesias of the face or difficulty with speech. He denies foreign body sensation or itching. Aggravating or relieving factors at this time. Ddx considered but are not limited to: corneal abrasion, acute glaucoma, globe rupture, FB, Corneal Ulcer, conjunctivitis. Iridis, orbital cellulitis,keratitis , sinusitis Vital signs: are WNL, pt. is afebrile H&PE are most consistent with: bacterial conjunctivitis, and blepharitis ORDERS: none at this time. ED INTERVENTIONS: none at this time. DISCHARGE: At this time pt. is stable for d/c to home. Will provide printed patient care instructions, and any necessary prescriptions. Care plan and follow up instructions have been discussed with the patient prior to discharge. Last Vital Signs Date Time Temp Pulse Resp B/P (MAP) Pulse Ox O2 Delivery O2 Flow Rate FiO2 06/27/18 13:24 98.1 72 16 130/80 97 Room Air Disposition: HOME, SELF-CARE Condition: Stable Patient Instructions: Bacterial Conjunctivitis, Blepharitis, [id number] Additional Instructions: Take medications as directed. Follow up with a [employer] [facility] in 3 days, even if your symptoms have resolved. --Please review list of primary care clinics, if you do not already have a primary care provider Return sooner to ED if new symptoms occur, or current symptoms become worse. - Please note that this Emergency Department Report was dictated using [employer] finisher technology software, occasionally this can lead to erroneous entry secondary to interpretation by the dictation equipment. Candida Kerr June 27, 2018 13:49
[2018-06-27] MEDS ORDERED: TYLENOL EXTRA500 MG ORAL (14:03)
[2018-06-27 14:10] VITALS: BP 130/80
--- NOTE | 2018-06-27 14:10 | NUR ---
ER DISCHARGE NOTE: Patient is cleared to be discharged per ERPA, pt is aox4, on room air, with stable vital signs. pt was given dc and prescription instructions, pt was able to verbalize understanding, pt id band removed. pt is able to ambulate with steady gait. pt took all belongings.
== END 2018-06-27 14:10 | disposition home or self-care (01) ==
LOC: EMR 13:43
DX: H01.004 Unspecified blepharitis left upper eyelid (principal); H10.32 Unspecified acute conjunctivitis, left eye; H54.62 Unqualified visual loss, left eye, normal vision right eye
CPT/HCPCS: 99282

== ENCOUNTER 2018-12-13 14:48 | Emergency (ER) | payer OTHER ==
[~2018-12-13] VITALS: Ht 162.6 cm; Wt 70.3 kg
--- NOTE | 2018-12-13 14:59 | NUR ---
ED Nurse Note: pt presents to ED c/o R sided rib pain that is a 7/10 and radiates to the R middle back. 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 pt denies any injury or trauma to the area and describes the pain as "throbbing.". Pt reports taking advil PM with some relief of symptoms.
[2018-12-13 15:01] VITALS: BP 133/68
--- NOTE | 2018-12-13 15:46 | Emergency Room Report ---
History of Present Illness General Chief Complaint: Lower Back Pain or Injury Source: Patient Present Illness HPI 63-year-old male presents to the emergency department complaining of 7 out of 10 severity intermittent right upper quadrant abdominal pain with some radiation posteriorly. Patient denies trauma or fall he denies urinary symptoms such as hematuria, dysuria, urinary frequency or urgency. He denies nausea, vomiting or abdominal tenderness. Patient states that deep inhalation or expiration does not necessarily exacerbate his symptoms. 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 He denies history of renal calculi. He denies fevers or chills. No other aggravating or relieving symptoms at this time. Denies CP, Palpitations, LOC, AMS, dizziness, cough, or recent URI. 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 Review of Systems All Other Systems: negative except mentioned in HPI Physical Exam Vital Signs Date Time Temp Pulse Resp B/P (MAP) Pulse Ox O2 Delivery O2 Flow Rate FiO2 12/13/18 14:53 98.2 85 17 133/68 (89) 99 Room Air Sp02 EP Interpretation: reviewed, normal General Appearance: no apparent distress, alert, GCS 15, non-toxic Head: normocephalic, atraumatic Eyes: bilateral eye normal inspection, bilateral eye PERRL ENT: hearing grossly normal, normal voice Neck: full range of motion Respiratory: chest non-tender, lungs clear, normal breath sounds, no respiratory distress, no wheezing, speaking full sentences Cardiovascular #1: regular rate, rhythm Gastrointestinal: normal bowel sounds, soft, non-distended, no guarding, other - RUQ TTP Rectal: deferred Genitourinary: normal inspection, no CVA tenderness Musculoskeletal: back normal, gait/station normal, normal range of motion, tender - TTP to the right abdominal rectus and latismus muscles. no bony ttp, FROM. no bruises or obvious deformities. Neurologic: alert, oriented x3, responsive, motor strength/tone normal, sensory intact, speech normal, grossly normal Psychiatric: judgement/insight normal Lymphatic: no adenopathy Medical Decision Making PA Attestation Dr. Galdamez is my supervising Physician whom patient management has been discussed with. Diagnostic Impression: Primary Impression: Muscle strain ER Course 63-year-old male presents to the emergency department complaining of 7 out of 10 severity intermittent right upper quadrant abdominal pain with some radiation posteriorly. Patient denies trauma or fall he denies urinary symptoms such as hematuria, dysuria, urinary frequency or urgency. He denies nausea, vomiting or abdominal tenderness. Patient states that deep inhalation or expiration does not necessarily exacerbate his symptoms. 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 He denies history of renal calculi. He denies fevers or chills. No other aggravating or relieving symptoms at this time. Denies CP, Palpitations, LOC, AMS, dizziness, cough, or recent URI. Ddx considered but are not limited to Diverticulitis, acute appy, diarrhea,UC, PUD, GE, pancreatitis, gallstone, muscle strain, renal calculi, MSK injury just to name a few. Vital signs: are WNL, pt. is afebrile H&PE are most consistent with possible muscle strain ORDERS: CBC, CMP, lipase, UA---all WNL ED INTERVENTIONS: -GI Cocktail -- no relief -600mg IBU PO -I do not identify an emergent condition at this time. With current presentation , pt. is stable for close outpatient follow up and conservative treatment. D/ w pt. to return promptly to ED with worsening or new symptoms.- Pt. verbalizes' understanding and agreement with proposed treatment plan. DISCHARGE: At this time pt. is stable for d/c to home. Will provide printed patient care instructions, and any necessary prescriptions. Care plan and follow up instructions have been discussed with the patient prior to discharge. Labs Test 12/13/18 15:33 White Blood Count 5.9 K/UL (4.8-10.8) Red Blood Count 4.43 M/UL (4.70-6.10) Hemoglobin 14.3 G/DL (14.2-18.0) Hematocrit 42.0 % (42.0-52.0) Mean Corpuscular Volume 95 FL (80-99) Mean Corpuscular Hemoglobin 32.3 PG (27.0-31.0) Mean Corpuscular Hemoglobin Concent 34.1 G/DL (32.0-36.0) Red Cell Distribution Width 11.1 % (11.6-14.8) Platelet Count 164 K/UL (150-450) Mean Platelet Volume 8.6 FL (6.5-10.1) Neutrophils (%) (Auto) 69.8 % (45.0-75.0) Lymphocytes (%) (Auto) 17.6 % (20.0-45.0) Monocytes (%) (Auto) 10.5 % (1.0-10.0) Eosinophils (%) (Auto) 1.2 % (0.0-3.0) Basophils (%) (Auto) 0.9 % (0.0-2.0) Urine Color Pale yellow Urine Appearance Clear Urine pH 7 (4.5-8.0) Urine Specific [place] 1.010 (1.005-1.035) Urine Protein Negative (NEGATIVE) Urine Glucose (UA) Negative (NEGATIVE) Urine Ketones Negative (NEGATIVE) Urine Blood 1+ (NEGATIVE) Urine Nitrite Negative (NEGATIVE) Urine Bilirubin Negative (NEGATIVE) Urine Urobilinogen Normal MG/DL (0.0-1.0) Urine Leukocyte Esterase Negative (NEGATIVE) Urine RBC 2-4 /HPF (0 - 0) Urine WBC 2-4 /HPF (0 - 0) Urine Squamous Epithelial Cells None /LPF (NONE/OCC) Urine Bacteria None /HPF (NONE) Sodium Level 144 MMOL/L (136-145) Potassium Level 3.9 MMOL/L (3.5-5.1) Chloride Level 110 MMOL/L (98-107) Carbon Dioxide Level 27 MMOL/L (21-32) Anion Gap 7 mmol/L (5-15) Blood Urea Nitrogen 14 mg/dL (7-18) Creatinine 1.0 MG/DL (0.55-1.30) Estimat Glomerular Filtration Rate > 60 mL/min (>60) Glucose Level 100 MG/DL (74-106) Calcium Level 9.1 MG/DL (8.5-10.1) Total Bilirubin 0.4 MG/DL (0.2-1.0) Aspartate Amino Transf (AST/SGOT) 27 U/L (15-37) Alanine Aminotransferase (ALT/SGPT) 36 U/L (12-78) Alkaline Phosphatase 77 U/L (46-116) Total Protein 7.3 G/DL (6.4-8.2) Albumin 3.5 G/DL (3.4-5.0) Globulin 3.8 g/dL Albumin/Globulin Ratio 0.9 (1.0-2.7) Lipase 74 U/L (73-393) CT/MRI/US Diagnostic Results CT/MRI/US Diagnostic Results : Imaging Test Ordered: US Abd. Complete Impression " Small cystic structures noted in bilateral kidneys. Echogenic foci noted in the right kidney. No hydronephrosis. Liver, pancreas, spleen, AO and IVC within normal limits. No free fluid. Gallbladder is contracted. No wall thickening. - SMS. CBD within normal limits." Per Radiology US tech report- Please see report for specific details. Last Vital Signs Date Time Temp Pulse Resp B/P (MAP) Pulse Ox O2 Delivery O2 Flow Rate FiO2 12/13/18 15:01 98.2 17 133/68 99 Room Air 12/13/18 14:53 85 Disposition: HOME, SELF-CARE Condition: Stable Scripts Ibuprofen* (MOTRIN*) 600 Mg Tablet 600 MG ORAL THREE TIMES A DAY, #30 TAB 0 Refills Prov: Candida Kerr 12/13/18 Methocarbamol* (ROBAXIN-750*) 750 Mg Tablet 750 MG PO TID, #21 TAB 0 Refills Prov: Candida Kerr 12/13/18 Candida Kerr Dec 13, 2018 15:46
[2018-12-13 15:56] LABS: BASOPHILS % (AUTO) 0.9 % (0.0-2.0); EOSINOPHILS % (AUTO) 1.2 % (0.0-3.0); HEMOGLOBIN 14.3 G/DL (14.2-18.0); LYMPHOCYTES % (AUTO) 17.6 % (20.0-45.0); MEAN CORPUSCULAR VOLUME 95 FL (80-99); MONOCYTES % (AUTO) 10.5 % (1.0-10.0); NEUTROPHILS % (AUTO) 69.8 % (45.0-75.0); PLATELET COUNT 164 K/UL (150-450); RED BLOOD COUNT 4.43 M/UL (4.70-6.10); RED CELL DISTRIBUTION WIDTH 11.1 % (11.6-14.8); WHITE BLOOD COUNT 5.9 K/UL (4.8-10.8)
[2018-12-13] MEDS ORDERED: Mylanta II UD 30ml ORAL ONE (16:00)
[2018-12-13] MEDS ORDERED: Lidocaine 2% Visc 15ml soln ORAL ONE (16:00)
[2018-12-13 16:31] LABS: ANION GAP 7 mmol/L (5-15); BLOOD UREA NITROGEN 14 mg/dL (7-18); CALCIUM 9.1 MG/DL (8.5-10.1); CARBON DIOXIDE 27 MMOL/L (21-32); CHLORIDE 110 MMOL/L (98-107); POTASSIUM 3.9 MMOL/L (3.5-5.1); SODIUM 144 MMOL/L (136-145)
[2018-12-13 16:36] LABS: ALANINE AMINOTRANSFERASE 36 U/L (12-78); ALBUMIN 3.5 G/DL (3.4-5.0); ALBUMIN/GLOBULIN RATIO 0.9 (1.0-2.7); ALKALINE PHOSPHATASE 77 U/L (46-116); ASPARTATE AMINO TRANSFERASE 27 U/L (15-37); BILIRUBIN,TOTAL 0.4 MG/DL (0.2-1.0)
[2018-12-13 16:40] LABS: APPEARANCE,URINE CLEAR; BILIRUBIN, URINE NEGATIVE (NEGATIVE); COLOR,URINE PALE YELLOW; GLUCOSE, URINE (UA) NEGATIVE (NEGATIVE); KETONES,URINE NEGATIVE (NEGATIVE); LEUKOCYTE ESTERASE ,URINE NEGATIVE (NEGATIVE); NITRITE,URINE NEGATIVE (NEGATIVE); PH,URINE 7 (4.5-8.0); PROTEIN,URINE NEGATIVE (NEGATIVE); UROBILINOGEN,URINE NORMAL MG/DL (0.0-1.0)
[2018-12-13] MEDS ORDERED: IBUPROFEN600 MG ORAL (17:14)
[2018-12-13] MEDS ORDERED: ROBAXIN-750750 MG PO (17:14)
--- NOTE | 2018-12-13 17:20 | NUR ---
ED Nurse Note: Pt cleared by health care Provider for discharge. DC instructions/prescription was given and explained to pt and verbalized understanding of teachings. All medical deviecs such as ID band and IV removed. Pt is AAO x4, ambulatory and left with all personal belongings.
[2018-12-13 17:21] VITALS: BP 133/68
--- NOTE | 2018-12-13 18:17 | Diagnostic Imaging Report ---
Indication: Abdominal pain Technique: Garcia-scale and duplex images of the upper abdomen were obtained Comparison: Findings: Gallbladder is nondistended. No stones, wall thickening, nor pericholecystic fluid noted. Sonographic Chávez's sign is negative. Common bile duct measures 2 mm in diameter. No intrahepatic biliary ductal dilatation. Liver demonstrates normal echogenicity, no focal abnormality. Portal vein and hepatic veins are patent. Pancreas is unremarkable. Spleen is unremarkable. Left kidney measures 10.1 cm in length. Right kidney measures 10 cm length. Both kidneys demonstrate normal echogenicity. There is no hydronephrosis. Small cysts are seen bilaterally. Echogenic foci in the right renal sinus could represent small nonobstructive calculi . Non-aneurysmal abdominal aorta . Impression: Essentially unremarkable exam Small nonobstructive right renal calculi versus artifact Incidental finding right renal cysts
== END 2018-12-13 17:23 | disposition home or self-care (01) ==
LOC: EMR 15:05
DX: T14.8XXA Other injury of unspecified body region, initial encounter (principal); X58.XXXA Exposure to other specified factors, initial encounter; Y92.9 Unspecified place or not applicable; N28.1 Cyst of kidney, acquired
CPT/HCPCS: 36415; 76700; 80053; 81003; 83690; 85025; Z7502; 99284

== ENCOUNTER 2019-12-20 15:02 | Emergency (ER) | payer OTHER ==
[~2019-12-20] VITALS: Ht 162.6 cm; Wt 69.4 kg
[~2019-12-20 15:02] MED LIST changes: +ROBAXIN-750750 MG PO
[2019-12-20 15:15] VITALS: BP 126/80
--- NOTE | 2019-12-20 15:15 | NUR ---
ED Nurse Note: Patient walked in to ED c/o lower back pain x 2 days. Denies trauma/ injury to the area. Denies dysuria. AAOx4, verbally responsive. No SOB, on room air. ERPA at bedside.
--- NOTE | 2019-12-20 15:17 | Emergency Room Report ---
History of Present Illness General Chief Complaint: Lower Back Pain or Injury Present Illness HPI 64 YO male presents to the ED c/o 09/17 in severity LBP x 2 days. Denies trauma or fall. Hx of left eye blindness. 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 Patient reports he is in need position and moves around a lot. Patient reports this is happened to him previously in the past. Patient reports that symptoms are similar in character. Denies numbness tingling or loss of sensation or gross motor movements of the extremities, incontinence of bowel or bladder. Denies CP, Palpitations, LOC, AMS, dizziness, Changes in Vision, weakness or a sudden severe headache. He reports taking both Tylenol and Tylenol with codeine without relief. 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 Review of Systems All Other Systems: negative except mentioned in HPI Physical Exam Vital Signs Date Time Temp Pulse Resp B/P (MAP) Pulse Ox O2 Delivery O2 Flow Rate FiO2 12/20/19 15:12 98.1 87 20 126/80 (95) 95 Room Air Sp02 EP Interpretation: reviewed, normal General Appearance: no apparent distress, alert, GCS 15, non-toxic Head: normocephalic, atraumatic Eyes: bilateral eye normal inspection, bilateral eye PERRL ENT: hearing grossly normal, normal voice Neck: full range of motion Respiratory: lungs clear, normal breath sounds, speaking full sentences Cardiovascular #1: regular rate, rhythm Gastrointestinal: non tender, soft Genitourinary: normal inspection, no CVA tenderness Musculoskeletal: normal range of motion, gait/station normal, tender - Mild Tenderness to palpation to paraspinal muscles of the lower back without midline tenderness. Neurologic: alert, motor strength/tone normal, oriented x3, sensory intact, responsive, speech normal, normal gait, grossly normal, no focal defects Psychiatric: judgement/insight normal Skin: no rash, normal color Medical Decision Making PA Attestation Dr. Solano Is my supervising Physician whom patient management has been discussed with. Diagnostic Impression: Primary Impression: Low back pain Qualified Codes: M54.5 - Low back pain ER Course 64 YO male presents to the ED c/o 09/17 in severity LBP x 2 days. Denies trauma or fall. Hx of left eye blindness. 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 Patient reports he is in need position and moves around a lot. Patient reports this is happened to him previously in the past. Patient reports that symptoms are similar in character. Denies numbness tingling or loss of sensation or gross motor movements of the extremities, incontinence of bowel or bladder. Denies CP, Palpitations, LOC, AMS, dizziness, Changes in Vision, weakness or a sudden severe headache. He reports taking both Tylenol and Tylenol with codeine without relief. Ddx considered: epidural abscess, fracture, sprain/strain, meningitis, spinal chord injury, sciatica, cauda equina, Pyelonephritis, renal calculi just to name a few. Vital signs reviewed and are WNL during ED visit. Pt. is afebrile with no signs of infection No new symptoms, and denies recent trauma. No saddle anesthesia noted, Pt. denies incontinence Neurovascular is intact ROM is limited due to pain but pt. can almost fully flex the back. * Mild Tenderness to palpation to paraspinal muscles of the lower back without midline tenderness. *Pt. describes pain today as moderate and radiates across the lower back. ORDERS: none warranted at this time. INTERVENTIONS: - 30mg IM Toradol - Lidoderm TP D/W Pt. that for further pain management is it recommended to consult PCP or a Chronic Pain management doctor. A provider who can safely prescribe controlled substances with close follow up. DISCHARGE: At this time pt. is stable for d/c to home. Will provide printed patient care instructions, and any necessary prescriptions. Care plan and follow up instructions have been discussed with the patient prior to discharge. Last Vital Signs Date Time Temp Pulse Resp B/P (MAP) Pulse Ox O2 Delivery O2 Flow Rate FiO2 12/20/19 15:12 98.1 87 20 126/80 (95) 95 Room Air Disposition: HOME, SELF-CARE Condition: Stable Scripts Lidocaine Patch* (Lidoderm Patch*) 1 Each Adh..patch 1 PATCH TOPIC DAILY, #30 PATCH 0 Refills Patch(es) may remain in place for up to 12 hours in any 24-hour period. Prov: Candida Kerr 12/20/19 Ibuprofen* (MOTRIN*) 600 Mg Tablet 600 MG ORAL THREE TIMES A DAY, #20 TAB Prov: Candida Kerr 12/20/19 Methocarbamol* (ROBAXIN-750*) 750 Mg Tablet 750 MG PO QID, #28 TAB 0 Refills Prov: Candida Kerr 12/20/19 Patient Instructions: Back Pain, Adult Additional Instructions: Take medications as directed. Do not drink alcohol, drive, or operate heavy machinery while taking Robaxin ( Muscle Relaxers) as this may cause drowsiness. Follow up with a Primary Care Provider in 3-5 days, even if your symptoms have resolved. --Please review list of primary care clinics, if you do not already have a primary care provider Return sooner to ED if new symptoms occur, or current symptoms become worse. - Please note that this Emergency Department Report was dictated using [employer] technology software, occasionally this can lead to erroneous entry secondary to interpretation by the dictation equipment. Candida Kerr Dec 20, 2019 15:17
[2019-12-20] MEDS ORDERED: Ketorolac 30mg Inj IM ONE (15:30)
[2019-12-20] MEDS ORDERED: ROBAXIN-750750 MG PO (15:34)
[2019-12-20] MEDS ORDERED: LIDODERM700 M1 TOPIC (15:34)
[2019-12-20] MEDS ORDERED: IBUPROFEN600 M1 ORAL (15:34)
[2019-12-20 15:49] VITALS: BP 126/80
--- NOTE | 2019-12-20 15:49 | NUR ---
ED Nurse Note: Pt cleared by ERPA for discharge. DC instructions/prescription was given and explained to pt and verbalized understanding of teachings. All medical deviecs such as ID band removed. Pt is AAO x4, ambulatory and left with all personal belongings.
== END 2019-12-20 15:49 | disposition home or self-care (01) ==
LOC: EMR 15:40
DX: M54.5 Low back pain (principal); H54.40 Blindness, one eye, unspecified eye
CPT/HCPCS: 96372; J1885; Z7502; 99283